=== PATIENT | male | born 1980 | race Caucasian/White ===

== ENCOUNTER 2023-08-25 00:28 | Emergency (ER) | payer OTHER ==
[2023-08-25 00:37] VITALS: BP 132/82; PULSE 75; RESP 19; TEMP 97.8; BMI 39.3
[2023-08-25] MEDS ORDERED: LIDOCAINE 5% TOPICAL PATCH TP ONE (01:10)
[2023-08-25] MEDS ORDERED: LIDOCAINE 5% TOPICAL PATCH ONE (01:16)
[2023-08-25] MEDS ORDERED: LIDOCAINE PATCH REMOVAL MC SCH (22:00)
== END 2023-08-25 02:19 | disposition home or self-care (01) ==
LOC: FER 00:28
DX: M54.50 Low back pain, unspecified (principal); M46.1 Sacroiliitis, not elsewhere classified
CPT/HCPCS: 99283-25

== ENCOUNTER 2023-08-29 22:25 | Emergency (ER) | payer OTHER ==
[~2023-08-29 22:25] MED LIST: LIDOCAINE PATCH REMOVAL MC SCH
[2023-08-29 22:33] VITALS: BP 100/68; PULSE 72; RESP 18; TEMP 98.2; BMI 39.3
[2023-08-29] MEDS ORDERED: LIDOCAINE 5% TOPICAL PATCH TP ONE (23:37)
[2023-08-29] MEDS ORDERED: KETOROLAC TROMETHAMINE 15 MG/ML VIAL IM ONE (23:40)
[2023-08-29] MEDS ORDERED: KETOROLAC TROMETHAMINE 15 MG/ML VIAL ONE (23:52)
[2023-08-29] MEDS ORDERED: LIDOCAINE 4% PATCH TP ONE (23:52)
[2023-08-30] MEDS ORDERED: oxyCODONE HCL 5 MG TABLET PO ONE (00:18)
[2023-08-30] MEDS ORDERED: oxyCODONE HCL 5 MG TABLET ONE (00:24)
== END 2023-08-30 00:14 | disposition home or self-care (01) ==
LOC: JER 22:25
DX: M54.50 Low back pain, unspecified (principal)
CPT/HCPCS: 99283-25